=== PATIENT | female | born 1975 | race African-American/Black ===

== ENCOUNTER 2018-07-17 17:47 | Emergency (ER) | payer OTHER, SELFPAY ==
[2018-07-17 17:48] VITALS: BP 124/72; PULSE 91; RESP 16; TEMP 36.7; O2SAT 100; BMI 22.9
--- NOTE | 2018-07-17 18:10 | RAD_ITS ---
STUDY: X-RAY - LEFT HAND REASON FOR EXAM: Female, 42 years old. Trauma TECHNIQUE: 3 view(s) of the hand. COMPARISON: None. FINDINGS: Normal radiocarpal articulation. Normal distal radioulnar joint. Normal visualized carpal bones. Normal carpal articulations Normal carpometacarpal articulation of the thumb. Normal second through fifth carpometacarpal joints. Normal metacarpi. Normal metacarpophalangeal joint of the thumb. Normal interphalangeal joint of the thumb. Normal proximal and distal phalanges of the thumb. Normal metacarpophalangeal joints of the second through fifth fingers. Normal proximal and distal interphalangeal joints of the second through fifth fingers. Normal phalanges of the second through fifth fingers. The soft tissue structures are unremarkable. RAD/Hand Min 3 Views IMPRESSION: Normal x-ray examination of the hand. Electronically Signed: King Adkins MD at 18:20 EDT , Service support ,
--- NOTE | 2018-07-17 18:12 | ED.VISSUMM ---
- ER Visit Summary Date of Service: 07/17/18 Chief Complaint: Left small finger injury History of Present Illness: The patient is a 42 F presenting with left small finger injury. This occurred yesterday. She states a TV fell and hit her left small finger. Her finger bent backwards. She complains of persistent pain in left small finger. Denies other injury. She is right-handed. Physical Examination: Vitals are stable. Patient is afebrile. Alert no acute distress. HEENT exam is unremarkable. Neck is supple. Lungs are clear and equal bilaterally. Heart is regular rate and rhythm. Extremities left small finger distal tenderness to palpation with painful range of motion. Normal cap refill. Skin is warm and dry. No focal neurologic deficit. Remainder of exam is unremarkable. Emergency Department Course and Treatment: Left hand x-ray shows no acute process. Patient is given aluminum foam splint. She is given prescription for Naprosyn. Advised to follow-up with primary care physician. Advised return to ED if worsening complaints. Disposition: Discharge home Impression: Left small finger injury This note was generated with [employer] dictation software. It may contain incorrect words, spelling, and punctuation that were not noted in review of the chart prior to signing ED Disposition - Plan for ED Patient: Instructions: ED Contusion Upper Ext Prescriptions: Naproxen [Naprosyn] 500 mg PO BID PRN #20 tablet Referrals: Flex Colvin MD [STAFF PHYSICIAN] - NOT,DEFINED [Primary Care Provider] -
--- NOTE | 2018-07-17 18:24 | ED.DEP ---
ED Disposition - Plan for ED Patient: Instructions: ED Contusion Upper Ext Prescriptions: Naproxen [Naprosyn] 500 mg PO BID PRN #20 tablet Referrals: NOT,DEFINED [Primary Care Provider] - Flex Colvin MD [STAFF PHYSICIAN] -
== END 2018-07-17 18:56 | disposition home or self-care (01) ==
LOC: ED 18:44
PROVIDERS: Emergency Provider Emergency Medicine
DX: S69.92XA Unspecified injury of left wrist, hand and finger(s), initial encounter (principal); W20.8XXA Other cause of strike by thrown, projected or falling object, initial encounter; Y93.9 Activity, unspecified; Y92.9 Unspecified place or not applicable; Y99.9 Unspecified external cause status
CPT/HCPCS: 73130; 99283

== ENCOUNTER 2018-11-06 16:20 | Emergency (ER) | payer OTHER, MEDICAID, SELFPAY ==
[2018-11-06 16:21] VITALS: BP 160/110; PULSE 94; RESP 18; TEMP 36.6; O2SAT 100; BMI 23.1
--- NOTE | 2018-11-06 17:08 | EKG12_ITS ---
Test Reason : CP Blood Pressure : / mmHG Vent. Rate : 095 BPM Atrial Rate : 095 BPM P-R Int : 184 ms QRS Dur : 090 ms QT Int : 368 ms P-R-T Axes : 073 060 069 degrees QTc Int : 462 ms Normal sinus rhythm Possible Left atrial enlargement Borderline ECG Confirmed by ROBINSON CARO, ONIEL ([id number]), copy editor MONE FELICIANO ([id number]) on 11/08/2018 10:12:04 AM Referred By: VIRGIL
--- NOTE | 2018-11-06 17:11 | RAD_ITS ---
STUDY: X-RAY CHEST REASON FOR EXAM: Female, 43 years old. Chest pressure TECHNIQUE: AP portable COMPARISON: None. FINDINGS: The lungs are clear and expanded. There is no demonstrated pleural abnormality. Normal size heart. Normal mediastinum and lv. Normal visualized pulmonary arteries. Normal visualized aortic arch and descending thoracic aorta. Normal visualized thoracic spine. Normal visualized ribs, clavicles, and shoulders. There is no demonstrated abnormality of the visualized soft tissue structures of the upper abdomen. RAD/Chest 1 View (Portable) IMPRESSION: Normal x-ray examination of the chest. Electronically Signed: Chiki Agarwal MD at 17:37 EDT , Service support ,
[2018-11-06] MEDS: 0.9% Normal Saline 1,000 ML 150 ML IV (17:18)
[2018-11-06] MEDS: Aspirin 81 MG TAB.CHEW 162 MG PO (17:18)
[2018-11-06 17:21] VITALS: BP 134/99; PULSE 87; RESP 12; O2SAT 100
[2018-11-06 17:28] LABS: Absolute Lymphocyte Count 2.37 X10^3/uL (0.83-4.51); Absolute Neutrophil Count 4.4 X10^3/uL (2.0-7.7); Basophil# 0.03 X10^3/uL; Basophil% 0.4 % (0-1); Eosinophil# 0.08 X10^3/uL; Eosinophils% 1.1 % (0-5); Hematocrit 40.7 % (37-47); Hemoglobin 13.6 g/dL (12.0-15.0); Lymphocyte # 2.37 X10^3/ul (4.0); Lymphocyte % 32.5 % (19-41); Mean Corp Hgb Conc 33.4 g/dL (32-36); Mean Corpuscular Hgb 29.9 pg (27.0-32.0); Mean Corpuscular Volume 89.5 fL (81-99); Mean Platelet Vol. 9.4 fl (6.2-12.0); Monocyte# 0.39 X10^3/uL; Monocyte% 5.3 % (0-10); NRBC Flagged by Analyzer 0 % (0-5); Neutrophil # 4.41 X10^3/uL (2.7-7.7); Neutrophil % 60.4 % (47-70); Platelet Count 276 K/mm3 (150-450); RBC Distribution Width CV 13.2 % (11.6-14.6); RBC Distribution Width SD 43.3 fl (35.1-43.9); Red Blood Count 4.55 M/mm3 (4.2-5.4); White Blood Count 7.3 K/mm3 (4.4-11.0)
[2018-11-06 17:36] LABS: D-Dimer Quantitative (DVT/PE) < 0.27 FEU/ug/m (0.27-0.49); Internal QC Validated? YES +Cl - CLEAR BKGD; Pregnancy, Serum, hCG Quali. NEGATIVE Negative
[2018-11-06 17:43] LABS: Anion Gap 7 (5-15); BUN 9 mg/dL (7-18); BUN/Creat Ratio 8.6 RATIO (10-20); Calcium,Total 9.1 mg/dL (8.5-10.1); Chloride 106 mmol/L (98-107); Creatinine, Serum 1.05 mg/dL (0.55-1.02); EST Glomerular Filtration Rate 61 mL/min (>60); Est Glom Filt Rate - Afr Amer 73 mL/min (>60); Estimated Creatinine Clearance 64.01 ml/min; Glucose 111 mg/dL (74-106); Potassium 3.6 mmol/L (3.5-5.1); Sodium Level 138 mmol/L (136-145)
[2018-11-06 18:12] VITALS: BP 155/97; PULSE 78; RESP 14; O2SAT 100
--- NOTE | 2018-11-06 18:35 | ED.DCSUM_ITS ---
History of Present Illness Chief Complaint: Chest Pain Informant: Patient Onset: Yesterday Current Severity: Mild Maximum Severity: Mild Narrative: Patient reports pressure in her eyes bilaterally is been ongoing for some time. She reports having some chest pressure that started yesterday. She describes a pulling sensation in her upper chest and into her neck. She believes this is secondary to her blood pressure being too high. She recently got a Fitbit watch the monitors and she is been getting warnings about her blood pressure being too high. She was previously on Pravachol, hydrochlorothiazide, and Zoloft but is been off since March when she moved. She does not have a doctor locally. 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 She denies any brain aneurysms. Past Medical History - Allergies and Home Meds Allergies/Adverse Reactions: Allergies Penicillins Allergy (Verified 07/17/18 17:50) Swelling shellfish derived Allergy (Verified 07/17/18 17:50) Swelling Primary Care Physician: Care Physician,No Primary [Primary Care Provider] - Past Medical History: - - Reviewed Smoking Status: Current every day smoker Review of Systems General: Denies: Chills, Fever Eyes: Reports: - - Intermittent blurred vision and eyes tearing. No light sensitivity. ENT: Denies: Bilateral ear pain Cardiovascular: Reports: Chest pain. Denies: Palpitations, Heart racing Respiratory: Denies: Dyspnea, Cough Gastrointestinal: Denies: Abdominal pain, Nausea, Vomiting Genitourinary: Denies: Dysuria Skin: Denies: Rash Neurological: Reports: Headache Psych: Denies: Depression, Anxiety Hematologic: Denies: Easy bruising Allergy: Denies: Uticaria Physical Exam Vital Signs/Narrative: Vital Signs Temp Pulse Resp BP Pulse Ox 11/06/18 18:12 78 14 155/97 H 100 11/06/18 17:21 87 12 134/99 H 100 11/06/18 16:21 97.9 F 94 18 160/110 H 100 Inital Vital Signs reviewed: Yes General: Well nourished, Well developed Head: Normocephalic, Atraumatic Eyes: Perrl, EOMI - Mild tearing of her eyes but no conjunctival injection. Pupils equal and reactive. No periorbital edema or erythema. No ptosis. ENT: Moist mucous membranes Neck: Supple Cardiovascular: Regular rate, Regular rhythm Respiratory: No distress, CTA bilaterally Abdomen: Soft, Nontender Back: Nontender Extremities: Nontender Skin: Normal color, No rash Neurological: Alert, Oriented x3, Normal Strength, Normal Sensation Psychological: - - Anxious Diagnostic/Tx/Re-eval Impressions Chest X-Ray 11/06/18 17:11 IMPRESSION: Normal x-ray examination of the chest. Electronically Signed: Chiki Agarwal MD at 17:37 EDT , Service support , 11/06/18 17:11 Chest 1 View (Portable) [RAD] Stat Laboratory Results 11/06/18 11/06/18 11/06/18 16:40 16:40 16:40 WBC 7.3 RBC 4.55 Hgb 13.6 Hct 40.7 MCV 89.5 MCH 29.9 MCHC 33.4 RDW Std Deviation 43.3 RDW Coeff of [place] 13.2 Plt Count 276 MPV 9.4 Immature Gran % (Auto) 0.300 Neut % (Auto) 60.4 Lymph % (Auto) 32.5 [place] % (Auto) 5.3 Eos % (Auto) 1.1 Baso % (Auto) 0.4 Absolute Neuts (auto) 4.4 Absolute Lymphs (auto) 2.37 Nucleated RBC % 0 D-Dimer Quant (PE/DVT) < 0.27 L Sodium 138 Potassium 3.6 Chloride 106 Carbon Dioxide 25.0 Anion Gap 7 BUN 9 Creatinine 1.05 H Estim Creat Clear Calc 64.01 Est GFR (MDRD) Af Amer 73 Est GFR (MDRD) Non-Af 61 BUN/Creatinine Ratio 8.6 L Glucose 111 H Calcium 9.1 Troponin I < 0.015 Serum , Qual 11/06/18 16:40 WBC RBC Hgb Hct MCV MCH MCHC RDW Std Deviation RDW Coeff of [place] Plt Count MPV Immature Gran % (Auto) Neut % (Auto) Lymph % (Auto) Newton % (Auto) Eos % (Auto) Baso % (Auto) Absolute Neuts (auto) Absolute Lymphs (auto) Nucleated RBC % D-Dimer Quant (PE/DVT) Sodium Potassium Chloride Carbon Dioxide Anion Gap BUN Creatinine Estim Creat Clear Calc Est GFR (MDRD) Af Amer Est GFR (MDRD) Non-Af BUN/Creatinine Ratio Glucose Calcium Troponin I Serum , Qual NEGATIVE - EKG Initial EKG Interpretation: Sinus Rhythm - Sinus at 95 with no acute ischemia. - Medical Decision Making Patient was given aspirin on arrival. Without any intervention blood pressure 160/110 down into the 130s systolic. At the time of my repeat examination her blood pressure is 142/98. She states her chest pressure seems to be improved. She has a mild headache at this time. She will refer to local PCP to establish care as well as given referral for ophthalmology as needed. I advised her that my hope is that we can get her back on her blood pressure medication, manage her blood pressure better and this will improve her vision and chest pressure issues. ED Disposition - Plan for ED Patient: Disposition: Home or Assisted Living Diagnosis: Chest pain, Hypertension Instructions: CHEST PAIN, Uncertain Cause, HYPERTENSION, New (Begin Treatment) Prescriptions: Hydrochlorothiazide 50 mg PO DAILY #30 tablet Pravastatin [Pravachol] 40 mg PO QHS #30 tablet Referrals: Madeline Rodas MD [STAFF PHYSICIAN] - As soon as possible Rubens Lo MD [STAFF PHYSICIAN] - As soon as possible
[2018-11-06 18:55] VITALS: BP 136/86; PULSE 82; RESP 17; O2SAT 99
--- NOTE | 2018-11-06 18:56 | ED.RN ---
IV DC'ED, CATHETER INTACT, SMALL GAUZE DRESSING PLACED. DISCHARGE INSTRUCTIONS GIVEN TO AND REVIEWED WITH PATIENT, PATIENT DENIES QUESTIONS OR CONCERNS AND VOICES UNDERSTANDING OF DISCHARGE INSTRUCTIONS. PT AMBULATES OUT OF ROOM WITHOUT DIFFICULTY.
== END 2018-11-06 18:56 | disposition home or self-care (01) ==
PROVIDERS: Emergency Provider Emergency Medicine
DX: R07.89 Other chest pain (principal); I10 Essential (primary) hypertension; H53.8 Other visual disturbances; F17.200 Nicotine dependence, unspecified, uncomplicated
CPT/HCPCS: 71045; 80048; 84484; 84703; 85025; 85379; 93005; 96360; 96361; 99285; J7030; A4216

== ENCOUNTER 2018-11-10 20:10 | Emergency (ER) | payer OTHER, MEDICAID, SELFPAY ==
[2018-11-10 20:11] VITALS: BP 135/90; PULSE 80; RESP 16; TEMP 36.5; O2SAT 96; BMI 23.6
[2018-11-10] MEDS: Doxycycline 100 MG CAPSULE PO (21:11)
--- NOTE | 2018-11-10 21:15 | ED.DCSUM_ITS ---
History of Present Illness Chief Complaint: Rash Informant: Patient Onset: Weeks - Onset 3 weeks ago Context: Sudden Onset Timing: Continuous Quality: Pustular rash with itching Location: Upper extremities Current Severity: Mild Maximum Severity: Moderate Worsened by: Scratching and using an abrasive brush/stone on the rash. Relieved by: Nothing Associated Symptoms: Itching only Narrative: Patient is a 43-year-old woman who presents with pruritic pustular rash. Rash started 3 weeks ago. Rash is located on the upper extremities. She has scars secondary to scratching and use of the abrasive stone. She denies fever, chills or night sweats. She denies history of MRSA. She denies any other symptoms. Prior similar symptoms: No Recent Illness/Hospitalization: No - Past Medical History (1) No significant past medical history Status: Acute Past Medical History - Allergies and Home Meds Allergies/Adverse Reactions: Allergies Penicillins Allergy (Verified 11/10/18 20:10) Swelling shellfish derived Allergy (Verified 11/10/18 20:10) Swelling Primary Care Physician: Care Physician,No Primary [Primary Care Provider] - Prior records reviewed: No Surgical History: noncontributory Lives: Alone Smoking Status: Current every day smoker Alcohol: Rare Drugs: None Review of Systems General: Denies: Chills, Fever, Malaise, Subjective, Sweats, Weight loss, - Respiratory: Denies: Dyspnea, Cough, Dyspnea on exertion Gastrointestinal: Denies: Nausea, Vomiting Musculoskeletal: Denies: Myalgias, Arthralgias, Neck pain, Back pain, Swelling, Extremity Pain Skin: Reports: Rash, Abrasions, Wounds. Denies: Abscess Neurological: Denies: Headache, Weakness, Parasthesia, Numbness, -, - Hematologic: Denies: Easy bruising, Easy bleeding, Lymphadenopathy, -, - Allergy: Denies: Uticaria, Swelling of the mouth, Swelling of the tongue, -, - Physical Exam Vital Signs/Narrative: Vital Signs Temp Pulse Resp BP Pulse Ox 11/10/18 20:11 97.7 F L 80 16 135/90 H 96 Inital Vital Signs reviewed: Yes General: Well nourished, Well developed, No Acute Distress Head: Normocephalic, Atraumatic Eyes: Perrl, EOMI. Negative for: Pale conjunctiva, Scleral icterus, - ENT: Moist mucous membranes, No rhinorrhea Neck: Supple, Nontender, No lymphadenopathy, No JVD Cardiovascular: Regular rate, Regular rhythm, No murmurs, Normal S1, Normal S2 Respiratory: No distress, CTA bilaterally, Chest nontender Skin: Normal color, Rash, Trauma - In [place] to abrasive brush/stone. Negative for: No rash, Cyanosis, Diaphoresis, Jaundice Neurological: Alert, Oriented x3, Cranial nerves II-XII grossly intact, Normal Strength, Normal Sensation Psychological: Normal affect, Normal Mood Diagnostic/Tx/Re-eval - Medical Decision Making With abrasions and pustular rash. There is evidence of cellulitis left anterior arm. There is no lymphangitis or axillary lymphadenopathy. Plan is to treat with doxycycline for pustular rash for strep and staph coverage. Since she has no systemic symptoms and on no immunosuppressive meds laboratory tests were not obtained. ED Disposition - Plan for ED Patient: Disposition: Home or Assisted Living Diagnosis: Pustular rash, Cellulitis of arm, left Instructions: Cellulitis Prescriptions: Doxycycline 100 mg PO BID #20 cap Prescription Printed Referrals: Care Physician,No Primary [Primary Care Provider] - Additional Instructions: If no improvement in 5 to 7 days follow-up with your primary care provider. The name of your primary care provider is listed on your insurance card
[2018-11-10 21:27] VITALS: RESP 16
== END 2018-11-10 21:28 | disposition home or self-care (01) ==
PROVIDERS: Emergency Provider Emergency Medicine
DX: L08.0 Pyoderma (principal); L03.114 Cellulitis of left upper limb; F17.200 Nicotine dependence, unspecified, uncomplicated
CPT/HCPCS: 99282